=== PATIENT | male | born 1990 | race Caucasian/White ===

== ENCOUNTER 2022-01-09 05:45 | Emergency (ER) | payer OTHER ==
[~2022-01-09] VITALS: Ht 193 cm; Wt 81.6 kg
[2022-01-09 06:01] VITALS: BP 131/64
--- NOTE | 2022-01-09 06:37 | ER.PDOC ---
General Chief Complaint: Lower Back Pain or Injury Stated Complaint: BACK PAIN Time seen by MD: 06:37 Source: patient Exam Limitations: no limitations History of Present Illness Initial Comments Pt presents c/o lower back pain radiating down his right leg after he stepped out off his truck. Also c/o right posterior shoulder pain. Timing/Duration: just prior to arrival Severity/Quality: moderate Radiation: other (from his right lower back down to his RLExt.) Associated Symptoms: muscle spasms (right posterios shoulder), lower back pain Allergies: Coded Allergies: No Known Allergies (Unverified , 01/09/22) Past Medical History Surgical History: no surgical history Social History Alcohol Use: occassionally Drug Use: none Review of Systems Constitutional: denies chills, denies diaphoresis, denies fever Respiratory: denies cough, denies orthopnea, denies shortness of breath Cardiovascular: denies chest pain, denies palpitations Gastrointestinal: denies abdominal pain, denies constipation Genitourinary: denies dysuria Musculoskeletal: back pain (lower back pain), joint pain (right shoulder pain) Skin: denies change in color All Other Systems: Reviewed and Negative Physical Exam General Appearance: No Apparent Distress, WD/WN HEENT: PERRL/EOMI Neck: Non-Tender, Normal Alignment Cardiovascular/Respiratory: Regular Rate, Rhythm, No M/R/G, Normal Peripheral Pulses, No JVD, Normal Breath Sounds, No Respiratory Distress Gastrointestinal: No Organomegaly, No Pulsatile Mass, Non Tender, Soft Back: Muscle Spasm (paraspinal muscles and right posterior shoulder), Vertebral Tenderness (lower back at the level of L4-L5) Extremities: No Evidence of Injury, Normal Range of Motion, No Pedal Edema, Pelvis Stable, Tenderness (right posterior shoulder painless FROM. 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, mood/effect nml, No Motor/Sensory Deficits, Relexes nml Skin: Normal Color, Warm/Dry Results/Orders Results/Orders Orders - KWADWO ROJAS MD Ketorolac Tromethamine (Toradol) (01/09/22 07:00) Ketorolac Tromethamine (Toradol) (01/09/22 06:51) Vital Signs Date Time Temp Pulse Resp B/P (MAP) Pulse Ox O2 Delivery O2 Flow Rate FiO2 01/09/22 06:58 97.9 59 16 152/74 (100) 97 Room Air* 0 21 01/09/22 06:01 97.9 62 16 131/64 (86) 97 Room Air* 0 21 01/09/22 06:01 97.9 62 16 97 01/09/22 06:01 97.9 62 16 Administered Medications Medications (Trade) Dose Ordered Sig/Leonard Route PRN Reason Start Time Stop Time Status Last Admin Dose Admin Ketorolac Tromethamine (Toradol) 60 mg OT ONCE IM 01/09/22 07:00 01/09/22 07:01 DC 01/09/22 06:56 60 MG ER DEPART Departure Time of Disposition: 06:48 Disposition: 01 HOME / SELF CARE / HOMELESS Impression: Primary Impression: Sciatica, right side Additional Impression: Right shoulder pain Condition: Stable Referrals: PCP,UNKNOWN (PCP) PRIMARY CARE PROVIDER Duration or Time Spent with Pa: 10 mins Return to Work/School Can a patient return to work?: Yes Problem Qualifiers KWADWO ROJAS MD January 09, 2022 06:37
[2022-01-09] MEDS ORDERED: TORADOL ONE (06:51)
[2022-01-09 06:58] VITALS: BP 152/74
[2022-01-09] MEDS ORDERED: TORADOL IM ONE (07:00)
== END 2022-01-09 07:00 | disposition home or self-care (01) ==
LOC: ER 05:45
DX: M54.41 Lumbago with sciatica, right side (principal); M25.511 Pain in right shoulder; F10.20 Alcohol dependence, uncomplicated
CPT/HCPCS: 96372; 99283; J1885